=== PATIENT | female | born 1995 | race Caucasian/White ===

== ENCOUNTER 2017-03-20 15:01 | Emergency (ER) | payer OTHER ==
[~2017-03-20] VITALS: Ht 172.7 cm; Wt 62.4 kg
[2017-03-20 15:04] VITALS: TEMP 36.6; Ht 172.7 cm; Wt 62.4 kg
[2017-03-20] MEDS ORDERED: SODIUM CHLORIDE 0.9% 1000ML 1,000 ML IV STA (15:18)
[2017-03-20 15:36] VITALS: O2SAT 100
[2017-03-20 15:37] LABS: URINE APPEARANCE CLEAR (CLEAR); URINE BILIRUBIN NEG (NEG); URINE COLOR YELLOW; URINE NITRITE NEG (NEG); URINE SPECIFIC GRAVITY 1.015 (1.000-1.030); UROBILINOGEN NEG (NEG)
[2017-03-20 15:39] LABS: MANUAL MICROSCOPIC REQUIRED? NO; REVIEW REQ? NO
[2017-03-20 15:43] LABS: BASO % 0.4 %; BASO ABS # 0.03 K/uL (0-0.2); COMPLETE YES; EOS % 1.1 %; HEMATOCRIT 45.3 % (37-47); IG% 0.3 %; LYMPH % 15.4 %; LYMPH ABS # 1.11 K/uL (1.2-3.4); MEAN CORPUSCULAR HEMOGLOBIN 30.9 pg (25-34); MEAN PLATELET VOLUME 9.1 fL (7.4-10.4); MONO % 7.6 %; NEUT % 75.2 %; PLATELET COUNT 258 K/uL (130-400); RED BLOOD COUNT 5.27 M/uL (4.2-5.4); WHITE BLOOD COUNT 7.22 K/uL (4.8-10.8)
--- NOTE | 2017-03-20 15:51 | EMERGENCY ROOM VISIT NOTE ---
History First contact with patient: 15:10 Chief Complaint: CARDIAC ASSESSMENT Stated Complaint: LIGHT HEADED, CHEST PAIN Nursing Triage Summary: Pt presents with c/o lightheaded all day. Pt states, "I feel like I might pass out. My left arm is weird and tingly. I have had chest pain on the left side for the past few days." B/L leg "soreness". Pt takes BCP. History of Present Illness The patient is a 21 year old female who presents to the Emergency Room with complaints of left-sided chest pain and dizziness that has been going on intermittently for the past 3-4 days. Patient states the symptoms have been getting worse today and she felt like she might pass out. She states the chest pain is left upper chest, intermittent, not exertional and not worse with taking a deep breath, seems to come and go without provocation, currently 0/10. She states she believes she may be dehydrated, admits to drinking heavily several nights this week. She also states she has had URI symptoms with a cough and congestion for the past week. She denies any leg pain or swelling, or history of DVT. She does take oral contraceptives and had a [address] from [place] a week ago when returning to campus as a student. She denies fevers or chills, headache, vision changes, neck pain, syncope, shortness of breath, nausea or vomiting, abdominal pain, back pain, diarrhea or constipation , dysuria or urinary frequency, rash. LMP 4 weeks ago, states she is supposed to start this tomorrow. Review of Systems A complete 10 point review of systems was reviewed with the patient with pertinent positives and negatives as per history of present illness. All else were negative. Past Medical/Surgical History No significant past medical or surgical history. Social History Smoking Status: Never Smoker Alcohol Use: heavy Drug Use: none Occupation Status: [employer] student Current/Historical Medications Scheduled Control Pills ( Control Pills), 1 TAB PO DAILY Physical Exam Vital Signs Date Time Temp Pulse Resp B/P (MAP) Pulse Ox O2 Delivery O2 Flow Rate FiO2 03/20/17 17:52 85 18 156/102 100 Room Air 03/20/17 17:31 78 17 151/90 100 Room Air 03/20/17 15:37 76 14 157/106 91 157/104 87 164/118 03/20/17 15:36 100 Room Air 03/20/17 15:04 36.6 99 20 172/111 100 Room Air 172/133 Physical Exam CONSTITUTIONAL: No acute distress. Mildly dehydrated, but otherwise well appearing and well nourished. Alert and oriented X 4 with normal affect. HEENT: Normocephalic, atraumatic. Pupils equal, round and reactive to light, EOMI. TMs normal. Pharynx normal. Tacky mucous membranes. NECK: Supple, full active range of motion without discomfort. RESPIRATORY: Clear to auscultation bilaterally with no wheezing, crackles, rhonchi or stridor. Equal expansion bilaterally. CARDIOVASCULAR: Regular rate and rhythm with no murmurs, rubs or gallops. Normal peripheral perfusion. No edema. No leg tenderness or swelling. CHEST WALL: Mild tenderness to palpation of the left anterior chest wall that reproduces patient's complaint, no crepitus, no ecchymosis or abrasions. GASTROINTESTINAL: Soft, nontender, nondistended. Bowel sounds present in all quadrants. MUSCULOSKELETAL: Full range of motion of all joints without discomfort. Negative Homans bilaterally sign. INTEGUMENTARY: No rash or other significant dermatologic conditions noted. NEUROLOGIC: Cranial nerves II-XII grossly intact. No focal neurologic deficits noted. Normal strength, normal sensation, normal gait, normal coordination, normal speech. Medical Decision & Procedures ER Provider Diagnostic Interpretation: CHEST 2 VIEWS ROUTINE HISTORY: 21 years-old Female Acute chest pain and dizziness. COMPARISON: None available TECHNIQUE: Frontal and lateral views of the chest. FINDINGS: Cardiomediastinal and hilar silhouettes are within normal limits. There is no pneumothorax, pleural effusion or focal airspace consolidation. Nodular density of the left lung base suggests a nipple shadow. No overt pulmonary edema. The bones are grossly intact. IMPRESSION: No acute cardiopulmonary process. Laboratory Results 03/20/17 15:33 Red Blood Count 5.27, Mean Corpuscular Volume 86.0, Mean Corpuscular Hemoglobin 30.9, Mean Corpuscular Hemoglobin Concent 36.0, Mean Platelet Volume 9.1, Neutrophils (%) (Auto) 75.2, Lymphocytes (%) (Auto) 15.4, Monocytes (%) (Auto) 7.6, Eosinophils (%) (Auto) 1.1, Basophils (%) (Auto) 0.4, Neutrophils # (Auto) 5.43, Lymphocytes # (Auto) 1.11, Monocytes # (Auto) 0.55, Eosinophils # (Auto) 0.08, Basophils # (Auto) 0.03 03/20/17 15:33 Test 03/20/17 15:15 03/20/17 15:18 03/20/17 15:33 03/20/17 15:39 Urine Color YELLOW Urine Appearance CLEAR (CLEAR) Urine pH 7.0 (4.5-7.5) Urine Specific [place] 1.015 (1.000-1.030) Urine Protein NEG (NEG) Urine Glucose (UA) NEG (NEG) Urine Ketones NEG (NEG) Urine Occult Blood NEG (NEG) Urine Nitrite NEG (NEG) Urine Bilirubin NEG (NEG) Urine Urobilinogen NEG (NEG) Urine Leukocyte Esterase NEG (NEG) White Blood Count 7.22 K/uL (4.8-10.8) Red Blood Count 5.27 M/uL (4.2-5.4) Hemoglobin 16.3 g/dL (12.0-16.0) Hematocrit 45.3 % (37-47) Mean Corpuscular Volume 86.0 fL (80-100) Mean Corpuscular Hemoglobin 30.9 pg (25-34) Mean Corpuscular Hemoglobin Concent 36.0 g/dl (32-36) Platelet Count 258 K/uL (130-400) Mean Platelet Volume 9.1 fL (7.4-10.4) Neutrophils (%) (Auto) 75.2 % Lymphocytes (%) (Auto) 15.4 % Monocytes (%) (Auto) 7.6 % Eosinophils (%) (Auto) 1.1 % Basophils (%) (Auto) 0.4 % Neutrophils # (Auto) 5.43 K/uL (1.4-6.5) Lymphocytes # (Auto) 1.11 K/uL (1.2-3.4) Monocytes # (Auto) 0.55 K/uL (0.11-0.59) Eosinophils # (Auto) 0.08 K/uL (0-0.5) Basophils # (Auto) 0.03 K/uL (0-0.2) RDW Standard Deviation 39.2 fL (36.4-46.3) RDW Coefficient of Variation 12.3 % (11.5-14.5) Immature Granulocyte % (Auto) 0.3 % Immature Granulocyte # (Auto) 0.02 K/uL (0.00-0.02) Anion Gap 9.0 mmol/L (3-11) Est Creatinine Clear Calc Drug Dose 87.7 ml/min Estimated GFR () 93.3 Estimated GFR (Non- 80.5 BUN/Creatinine Ratio 10.4 (10-20) Calcium Level 9.7 mg/dl (8.5-10.1) Total Bilirubin 0.3 mg/dl (0.2-1) Direct Bilirubin < 0.1 mg/dl (0-0.2) Aspartate Amino Transf (AST/SGOT) 28 U/L (15-37) Alanine Aminotransferase (ALT/SGPT) 28 U/L (12-78) Alkaline Phosphatase 88 U/L (45-117) Troponin I < 0.015 ng/ml (0-0.045) Total Protein 9.1 gm/dl (6.4-8.2) Albumin 4.4 gm/dl (3.4-5.0) Thyroid Stimulating Hormone (TSH) 1.430 uIu/ml (0.300-4.500) Bedside D-Dimer 251 ng/mlFEU (0-450) Medications Administered Medications (Trade) Dose Ordered Sig/Ximena Route Start Time Stop Time Status Last Admin Dose Admin Sodium Chloride 1,000 ml @ 999 mls/hr Q1H1M STAT IV 03/20/17 15:18 03/20/17 16:18 DC 03/20/17 15:18 999 MLS/HR Ketorolac Tromethamine (Toradol Inj) 15 mg NOW STAT IV 03/20/17 17:38 03/20/17 17:39 DC 03/20/17 17:48 15 MG ECG Indication: chest pain Rate (beats per minute): 81 Rhythm: normal sinus, sinus with SA Findings: no acute ischemic change, no ectopy Comparison ECG Date: no prior available Medical Decision CC: Patient presenting with complaint of intermittent chest pain and dizziness for several days Interpretation of Labs: No leukocytosis, no anemia, no significant electrolyte abnormalities, normal renal function, normal liver enzymes and lipase. Negative d-dimer, negative troponin. Negative UA, negative urine . Differential Diagnosis: Includes, but not limited to dehydration, electrolyte abnormality, pulmonary embolism, pneumonia, pneumothorax, pericarditis, myocarditis, anxiety, musculoskeletal pain, GERD, costochondritis, among others. Medication Reconciliation: I attest that I have personally reviewed the patient' s current medication list. Vital signs review: I reviewed the patient's vital signs and interpret them as follows: T: Afebrile; BP: Hypertensive; HR: Mildly tachycardic; RR: Within normal limits; Pulse Ox: Within normal limits on room air. Blood pressure screening: The patient was found to have a significantly elevated blood pressure and was referred to their primary doctor for recheck and further treatment this week. Summary: Patient was evaluated at bedside, history of physical exam performed. Patient is alert and in no acute distress, resting calmly in the stretcher. She is notably hypertensive on initial vital signs. She states she is feeling anxious. She does appear mildly dehydrated. No reproducible chest pain with palpation or with taking deep breath, chest pain does not seem to be pleuritic in nature Patient is low risk for PE by Wells criteria, risk factors of recent travel and oral contraceptive use, will do a d-dimer for rule out. Orders were placed at bedside for labs including d-dimer and troponin, UA and urine , IV fluids for hydration, chest x-ray, EKG. Patient discussed with Dr. Hylton, who agrees with my assessment and plan. Labs reviewed as above, no acute abnormality. Specifically negative d-dimer and negative troponin. EKG normal sinus rhythm with no acute ischemic changes or ectopy. Chest x-ray is clear with no acute abnormalities. Patient still complaining of intermittent pain in her chest. IV Toradol given for chest pain, with improvement. Patient reassessed multiple times throughout ED stay, she had improvement in her pain, she no longer complains of any dizziness. She did have downtrending of her heart rate and blood pressure, but remains significantly hypertensive during her stay. I spent several minutes discussing the patient's results as well as her follow- up plan, specifically regarding her elevated blood pressure. I instructed the patient to follow up with S this week to have her blood pressure rechecked, and discuss ongoing management of this. I also discussed return precautions should the patient's symptoms worsen, she verbalized understanding. Patient was discharged home in stable condition and ambulatory. Impression Primary Impression: Left-sided chest wall pain Additional Impressions: Lightheadedness Hypertension Departure Information Dispostion Home / Self-Care Condition GOOD Referrals No Doctor, Assigned (PCP) [facility] Patient Instructions ED Diet High Potassium, ED Hypertension Poss, ED Near Syncope Unkn, My [facility] Additional Instructions Follow-up this week at [facility] to have your blood pressure rechecked. You should discuss possible treatment for your high blood pressure, as well as possibly being set up or a Holter monitor. Drink plenty of fluids to stay well hydrated. Avoid consuming large amounts of alcohol in the future, as this may affect her hydration status and also your blood pressure. Please return to the emergency department for any worsening symptoms, including severe worsening chest pain, difficulty breathing, severe dizziness or passing out, coughing up blood, fevers/chills, or any other concerns. Problem Qualifiers Additional Impressions: Hypertension Hypertension type: unspecified Qualified Codes: I10 - Essential (primary) hypertension
[2017-03-20 16:01] LABS: ALT/SGPT 28 U/L (12-78); BLOOD UREA NITROGEN 10 mg/dl (7-18); BUN/CREATININE RATIO 10.4 (10-20); CALCIUM 9.7 mg/dl (8.5-10.1); CARBON DIOXIDE 27 mmol/L (21-32); CHLORIDE 104 mmol/L (98-107); GLUCOSE 115 mg/dl (70-99); POTASSIUM 3.3 mmol/L (3.5-5.1); SODIUM 140 mmol/L (136-145)
[2017-03-20] MEDS ORDERED: BCPILLS PO (16:09)
[2017-03-20 16:12] LABS: ALKALINE PHOSPHATASE 88 U/L (45-117); AST/SGOT 28 U/L (15-37)
--- NOTE | 2017-03-20 16:38 | DIAGNOSTIC IMAGING REPORT ---
CHEST 2 VIEWS ROUTINE HISTORY: 21 years-old Female Acute chest pain and dizziness. COMPARISON: None available TECHNIQUE: Frontal and lateral views of the chest. FINDINGS: Cardiomediastinal and hilar silhouettes are within normal limits. There is no pneumothorax, pleural effusion or focal airspace consolidation. Nodular density of the left lung base suggests a nipple shadow. No overt pulmonary edema. The bones are grossly intact. IMPRESSION: No acute cardiopulmonary process. The above report was generated using voice recognition software. It may contain grammatical, syntax or spelling errors. Electronically signed by: Juancho Choi M.D. 03/20/2017 4:36 PM Dictated Date/Time: 03/20/2017 4:35 PM
[2017-03-20] MEDS ORDERED: KETOROLAC TROMETHAMINE 30 MG/ML VIAL IV STA (17:38)
[2017-03-20 17:52] VITALS: BP 156/102; PULSE 85; O2SAT 100
== END 2017-03-20 18:23 | disposition home or self-care (01) ==
LOC: C.EDB 15:03
DX: R07.9 Chest pain, unspecified (principal); R42 Dizziness and giddiness; I10 Essential (primary) hypertension

== ENCOUNTER → 2017-05-23 | Outpatient (CLI) | payer OTHER ==
[~2017-05-23] MED LIST: BCPILLS PO
--- NOTE | 2017-05-23 12:55 | DIAGNOSTIC IMAGING REPORT ---
DUPLEX RENAL ARTERY HISTORY: 21 years-old Female HYPERTENSION acute hypertension COMPARISON: None available TECHNIQUE: Multiple real-time sonography images of the aorta, kidneys and bilateral renal vascular structures were obtained assessing grayscale appearance, color and spectral flow FINDINGS: Right kidney measures 11.5 x 4.2 x 5.4 cm and is unremarkable. No right-sided hydronephrosis. Mildly elevated peak systolic velocity of 204 cm/s is noted within the proximal aspect of the right main renal artery. Flow velocities are otherwise unremarkable on the right. The left kidney measures 11.0 x 5.2 x 5.8 cm and is also unremarkable without hydronephrosis. Peak systolic velocity 110 cm/s is noted within the proximal aspect of the left renal artery. Flow velocities are otherwise unremarkable on the left. IMPRESSION: 1. Elevated peak systolic velocity of 204 cm/s within the proximal aspect of the main right renal artery is noted. This is suspicious for possible renal artery stenosis from unknown etiology. In a patient of this age group, fibromuscular dysplasia is within the differential. 2. No significant elevated peak systolic velocities are seen on the left. 3. Sonographically, the bilateral kidneys appear unremarkable. The above report was generated using voice recognition software. It may contain grammatical, syntax or spelling errors. Electronically signed by: Juancho Choi M.D. 05/23/2017 12:53 PM Dictated Date/Time: 05/23/2017 12:45 PM
== END | disposition home or self-care (01) ==
LOC: C.ULTR 11:51
PROVIDERS: ATTEND Internal Medicine
DX: I10 Essential (primary) hypertension (principal)